=== PATIENT | female | born 1985 | race Caucasian/White ===

== ENCOUNTER 2019-10-29 17:31 | Emergency (ER) | payer MEDICAID ==
[~2019-10-29] VITALS: Ht 165.1 cm; Wt 81.6 kg
[2019-10-29 17:38] VITALS: BP 141/85
--- NOTE | 2019-10-29 17:47 | NUR ---
33/F BIB SELF C/O Chest pain x1 week. Pain radiates to left and right side of sternum. Intermittent pain, tight and pressure pain. Denies shortness of breathe. Discomfort when taking deep breathes. Pt seen at urgent care and referred to ED.
[2019-10-29] MEDS ORDERED: ASPIRIN 81 MG TAB.CHEW PO ONE (17:50)
--- NOTE | 2019-10-29 18:00 | NUR ---
Dr. Haskins is evaluating the patient at bedside.
--- NOTE | 2019-10-29 18:04 | NUR ---
heavy line technician at bedside.
[2019-10-29] MEDS ORDERED: IBUPROFEN 800 MG TAB PO ONE (18:20)
[2019-10-29 18:35] LABS: BASOPHILS # (AUTO) 0.1 K/uL (0.00-0.22); BASOPHILS % (AUTO) 0.9 % (0.0-2.0); EOSINOPHILS # (AUTO) 0.1 K/uL (0-0.4); HEMOGLOBIN 12.1 g/dL (12.0-16.0); LYMPHOCYTES % (AUTO) 24.5 % (20.5-51.1); MEAN CORPUSCULAR HEMOGLOBIN 28 pg (27-31); MEAN CORPUSCULAR HGB CONC 33 g/dL (33-37); MONOCYTES # (AUTO) 0.5 K/uL (0.8-1.0); MONOCYTES % (AUTO) 6.3 % (1.7-9.3); NEUTROPHILS # (AUTO) 5.6 K/uL (1.8-7.7); NEUTROPHILS % (AUTO) 67.3 % (42.2-75.2); PLATELET COUNT (AUTO) 292 K/uL (140-450); RED CELL DISTRIBUTION WIDTH 14.9 % (11.6-13.7); WHITE BLOOD COUNT (AUTO) 8.3 K/uL (4.8-10.8)
[2019-10-29 19:01] LABS: ALBUMIN 3.6 g/dL (3.4-5.0); CARBON DIOXIDE 27.6 mmol/L (21-32); CREATININE 0.7 mg/dL (0.6-1.3); POTASSIUM 3.6 mmol/L (3.5-5.1); TOTAL BILIRUBIN 0.2 mg/dL (0.0-1.0)
--- NOTE | 2019-10-29 19:15 | NUR ---
Pt report given to SHAUN HOOVER. Transfer of care at this time.
--- NOTE | 2019-10-29 19:17 | NUR ---
RECEIVED REPORT FROM KIKO LAGUNAS AND [facility].
[2019-10-29] MEDS ORDERED: NACL 0.9% 1,000 ML IV ONE (19:55)
--- NOTE | 2019-10-29 20:12 | NUR ---
LABS DRAWN AND SENT TO LAB
--- NOTE | 2019-10-29 21:25 | NUR ---
PATIENT STATES SHE IS STILL HAVING PAIN DISCOMFORT, ERMD MADE AWARE.
--- NOTE | 2019-10-29 21:28 | NUR ---
ERMD AT BEDSIDE
[2019-10-29] MEDS ORDERED: ACETAMINOPHEN 325 MG TAB PO ONE (21:30)
--- NOTE | 2019-10-29 21:40 | NUR ---
CONSENT SIGNED BY PATIENT, DOCTOR, AND WITNESS
[2019-10-29] MEDS ORDERED: ACETAMINOPHEN EXTRA STRENGTH 500 MG TAB ONE (21:43)
--- NOTE | 2019-10-29 21:53 | NUR ---
Pt laying in bed, rr even and unlabored. Report 4/10 mid chest pain. Report occasional cough. Denies SOB or n/v. VSS. All needs met.
[2019-10-29 23:57] VITALS: BP 111/72
== END 2019-10-29 23:57 | disposition home or self-care (01) ==
LOC: MED 17:31
DX: R07.89 Other chest pain (principal); R05 Cough; R07.0 Pain in throat
CPT/HCPCS: 36415; 71045; 71275; 80053; 84484; 85025; 85379; 93005; 99285; J7030; Q0092; Q9967